=== PATIENT | female | born 1995 | race Caucasian/White ===

== ENCOUNTER 2017-12-25 12:22 | Inpatient (IN) ==
--- NOTE | 2017-12-25 12:33 | Emergency Department Note ---
Disposition Clinical Impression: RLQ abdominal pain, Cecal diverticulitis Disposition: Admitted As Inpatient Condition: Fair General Adult HPI - General Chief complaint: ED Abdominal Pain Stated complaint: abd pain Time Seen by Provider: 12/25/17 12:28 Source: patient Limitations: no limitations - History of Present Illness Pain Scale: 6 - Related Data Home Medications Medication Instructions Recorded Confirmed No Known Home Drugs 12/25/17 12/25/17 Allergies Allergy/AdvReac Type Severity Reaction Status Date / Time No Known Allergies Allergy Verified 12/25/17 12:28 Past Medical History - Past Medical History Medical history: Reports: no medical history Psychiatric history: Reports: no psych history - Social History Smoking Status: Current every day smoker Smokeless Tobacco Status: No Alcohol use: Reports: none Drug use: Reports: none Physical Exam - General Limitations: no limitations General appearance: alert Course Vital Signs Temperature 98.4 F 12/25/17 12:24 Pulse Rate 122 12/25/17 12:24 Respiratory Rate 18 12/25/17 12:24 Blood Pressure 114/78 12/25/17 12:24 O2 Sat by Pulse Oximetry 99 12/25/17 12:24 Temperature 98.1 F 12/26/17 06:30 Pulse Rate 81 12/26/17 06:30 Respiratory Rate 18 12/26/17 06:30 Blood Pressure 101/66 12/26/17 06:30 O2 Sat by Pulse Oximetry 97 12/26/17 06:30 Oxygen Delivery Oxygen Delivery Room Air Medical Decision Making - Lab Data Result diagrams: 12/26/17 05:26 12/26/17 05:26 Lab Results 12/25/17 12/25/17 12/25/17 Range/Units 12:34 12:34 12:44 WBC 11.6 H (4.3-11.1) K/mcL RBC 4.72 (3.82-4.97) M/mcL Hgb 14.0 (11.5-15.4) g/dL Hct 42.4 (35.3-44.9) % MCV 89.8 (83.0-100.0) fL MCH 29.7 (28.0-33.3) pg MCHC 33.0 (31.6-35.5) g/dL RDW 12.4 (11.5-14.5) % Plt Count 284 (140-400) K/mcL MPV 10.5 (9.4-12.4) fL Immature Gran % 0.3 (0-4) % Seg Neutrophils % 82.1 % Lymphocytes % 11.1 % Monocytes % 5.9 % Eosinophils % 0.4 % Basophils % 0.2 % Neutrophils # 9.5 H (1.6-8.9) K/mcL Lymphocytes # 1.3 (0.6-4.6) K/mcL Monocytes # 0.7 (0.0-1.3) K/mcL Eosinophils # 0.1 (0.0-0.6) K/mcL Basophils # 0.0 (0.0-0.2) K/mcL Sodium (136-145) mEq/L Potassium (3.5-5.1) mEq/L Chloride (98-107) mEq/L Carbon Dioxide (23-29) mEq/L BUN (6-20) mg/dL Creatinine (0.60-1.20) mg/dL Est GFR ( Amer) (> 60) Est GFR (Non-Af Amer) (> 60) BUN/Creatinine Ratio (6-26) Glucose (70-105) mg/dL Calculated Osmolality (280-300) Calcium (8.6-10.3) mg/dL Total Bilirubin (0.3-1.0) mg/dL AST (13-39) Units/L ALT (7-52) Units/L Alkaline Phosphatase (34-104) Units/L Serum Total Protein (6.4-8.9) g/dL Albumin (3.5-5.7) g/dL Globulin (2.4-3.5) g/dL Albumin/Globulin Ratio (1.1-2.2) Lipase (11-82) Units/L Urine Color Yellow (Yellow) Urine Clarity Clear (Clear) Urine pH 6.5 (5.0-8.0) pH Units Ur Specific [place] 1.018 (1.010-1.025) Urine Protein Negative (Neg-Trace) mg/dL Urine Glucose (UA) Normal (Normal) mg/dL Urine Ketones Negative (Negative) mg/dL Urine Blood Negative (Negative) Urine Nitrite Negative (Negative) Urine Bilirubin Negative (Negative) Urine Urobilinogen Normal (Normal) mg/dL Ur Leukocyte Esterase Negative (Negative) Urine Test Negative (Negative) 12/25/17 12/25/17 Range/Units 12:44 12:44 WBC (4.3-11.1) K/mcL RBC (3.82-4.97) M/mcL Hgb (11.5-15.4) g/dL Hct (35.3-44.9) % MCV (83.0-100.0) fL MCH (28.0-33.3) pg MCHC (31.6-35.5) g/dL RDW (11.5-14.5) % Plt Count (140-400) K/mcL MPV (9.4-12.4) fL Immature Gran % (0-4) % Seg Neutrophils % % Lymphocytes % % Monocytes % % Eosinophils % % Basophils % % Neutrophils # (1.6-8.9) K/mcL Lymphocytes # (0.6-4.6) K/mcL Monocytes # (0.0-1.3) K/mcL Eosinophils # (0.0-0.6) K/mcL Basophils # (0.0-0.2) K/mcL Sodium 137 (136-145) mEq/L Potassium 3.7 (3.5-5.1) mEq/L Chloride 106 (98-107) mEq/L Carbon Dioxide 24 (23-29) mEq/L BUN 9 (6-20) mg/dL Creatinine 0.70 (0.60-1.20) mg/dL Est GFR ( Amer) > 60 (> 60) Est GFR (Non-Af Amer) > 60 (> 60) BUN/Creatinine Ratio 13 (6-26) Glucose 89 (70-105) mg/dL Calculated Osmolality 282 (280-300) Calcium 9.5 (8.6-10.3) mg/dL Total Bilirubin 0.7 (0.3-1.0) mg/dL AST 11 L (13-39) Units/L ALT 11 (7-52) Units/L Alkaline Phosphatase 72 (34-104) Units/L Serum Total Protein 7.2 (6.4-8.9) g/dL Albumin 4.3 (3.5-5.7) g/dL Globulin 2.9 (2.4-3.5) g/dL Albumin/Globulin Ratio 1.5 (1.1-2.2) Lipase 10 L (11-82) Units/L Urine Color (Yellow) Urine Clarity (Clear) Urine pH (5.0-8.0) pH Units Ur Specific [place] (1.010-1.025) Urine Protein (Neg-Trace) mg/dL Urine Glucose (UA) (Normal) mg/dL Urine Ketones (Negative) mg/dL Urine Blood (Negative) Urine Nitrite (Negative) Urine Bilirubin (Negative) Urine Urobilinogen (Normal) mg/dL Ur Leukocyte Esterase (Negative) Urine Test (Negative) Attestation Statement - Attestation Attestation: I examined this patient and my medical decision-making was reviewed with the Resident Physician. I agree with the documented findings, disposition and treatment plan as described except to the extent set forth below. Face to face time provided in conjunction with the resident physician Dr. Larios Patient presents with right lower quadrant abdominal pain. She displays mild voluntary guarding and tenderness with palpation of her right lower quadrant. She does have mild peritoneal findings. Concern for an acute surgical abdomen including such as acute appendicitis. 13:58: Dr. Franco has evaluated the patient. He recommends repeating a CT of the abdomen and pelvis with oral contrast.
[2017-12-25 12:48] LABS: Bilirubin,Urine Negative (Negative); Blood,Urine Negative (Negative); Clarity,Urine Clear (Clear); Color,Urine Yellow (Yellow); Glucose,Urine (UA) Normal (Normal); Ketones,Urine Negative (Negative); Leukocyte Esterase,Urine Negative (Negative); Nitrite,Urine Negative (Negative); PH,Urine 6.5 pH Units (5.0-8.0); Protein,Urine Negative (Neg-Trace); Specific Gravity,Urine 1.018 (1.010-1.025); Urobilinogen,Urine Normal (Normal)
[2017-12-25 12:52] LABS: Basophils % 0.2 %; Eosinophils # 0.1 K/mcL (0.0-0.6); Eosinophils % 0.4 %; Hematocrit 42.4 % (35.3-44.9); Immature Granulocytes % 0.3 % (0-4); Lymphocytes # 1.3 K/mcL (0.6-4.6); Lymphocytes % 11.1 %; Mean Corpuscular Hemoglobin 29.7 pg (28.0-33.3); Mean Corpuscular Volume 89.8 fL (83.0-100.0); Mean Platelet Volume 10.5 fL (9.4-12.4); Monocytes # 0.7 K/mcL (0.0-1.3); Monocytes % 5.9 %; Neutrophils # 9.5 K/mcL (1.6-8.9); Platelet Count 284 K/mcL (140-400); Red Blood Count 4.72 M/mcL (3.82-4.97); Red Cell Distribution Width 12.4 % (11.5-14.5); Segmented Neutrophils % 82.1 %
[2017-12-25] MEDS ORDERED: 0.9 % Sodium Chloride 1,000 ML IVC ONE ×2 (12:54→13:58)
[2017-12-25] MEDS ORDERED: *HR* FentaNYL (PF) 100 MCG/2 ML VIAL IVP ONE (12:54)
[2017-12-25] MEDS ORDERED: Ondansetron 4 MG/2 ML VIAL IVP PRN ×2 (12:54→16:54)
--- NOTE | 2017-12-25 12:58 | Emergency Department Note ---
Disposition Clinical Impression: RLQ abdominal pain, Cecal diverticulitis Disposition: Admitted As Inpatient Condition: Fair Time of Disposition: 20:25 Abdominal Pain HPI - General Chief Complaint: ED Abdominal Pain Stated Complaint: abd pain Time Seen by Provider: 12/25/17 12:28 Source: patient Nursing Notes Reviewed: Yes Vital Signs Reviewed: Yes - History of Present Illness HPI Narrative: 22-year-old female who complains of abdominal pain 3 days. Patient states that 3 days ago her pain started off just above her umbilicus over the next several days migrated to the right lower quadrant and has increased in intensity. Patient states pain is 7/10 but when exacerbated by movement or touch or sometimes nothing pain is 10/10. Patient states she has nausea with the pain but no vomiting. Patient also denies diarrhea. Patient is otherwise healthy and has no medical history or surgical history. Patient admits to tobacco use. Pain Scale: 6 - Related Data Home Medications Medication Instructions Recorded Confirmed No Known Home Drugs 12/25/17 12/25/17 Allergies Allergy/AdvReac Type Severity Reaction Status Date / Time No Known Allergies Allergy Verified 12/25/17 12:28 All systems ED: reviewed and negative except as stated. Review of Systems: As Per HPI Constitutional: Denies: fever, chills, weakness ENT ED: Denies: congestion Cardiovascular: Denies: chest pain Gastrointestinal: Reports: abdominal pain, nausea. Denies: vomiting Abdominal Pain PMH - Past Medical History Medical history: Reports: no medical history Female Surgical History: Reports: no surgical history Psychiatric history: Reports: no psych history - Social History Smoking status: Current every day smoker Alcohol use: Reports: none Drug use: Reports: none Physical Exam Vital Signs Temperature 98.4 F 12/25/17 12:24 Pulse Rate 122 12/25/17 12:24 Respiratory Rate 18 12/25/17 12:24 Blood Pressure 114/78 12/25/17 12:24 O2 Sat by Pulse Oximetry 99 12/25/17 12:24 Temperature 98.4 F 12/25/17 12:24 Pulse Rate 122 12/25/17 12:24 Respiratory Rate 18 12/25/17 12:24 Blood Pressure 114/78 12/25/17 12:24 O2 Sat by Pulse Oximetry 99 12/25/17 12:24 Oxygen Delivery Oxygen Delivery Room Air CONSTITUTIONAL: Alert and oriented X3, well-nourished, well appearing, in apparent distress from abdominal discomfort. HEAD: Normocephalic; atraumatic. EYES: PERRL, no scleral icterus. NOSE: The nose is normal in appearance without rhinorrhea RESP: Normal chest excursion with respiration; breath sounds clear and equal bilaterally; no wheezes, rhonchi, or rales CARD: Regular rhythm, without murmurs, rub or gallop ABD: Non-distended; flat and tender abdomen to palpation. The patient in right upper, left upper, and left lower quadrants have referred pain to the right lower quadrant at McBurney's point. Positive Rovsing's. Bowel sounds normoactive SKIN: Normal for age and race; warm and dry; no apparent lesions - General Limitations: no limitations General appearance: alert Course - Reevaluation(s) Reevaluation #1: CT results show Mild acute uncomplicated cecal diverticulitis. [facility] surgery has been contacted and Dr. Mejía will come and evaluate the patient. Time: 13:51 Reevaluation #2: Dr. Franco is here to evaluate patient Time: 13:53 Reevaluation #3: Patient was updated on the results of repeat CT scan with IV and oral contrast. As well as decision to admit to Dr. Franco' service. Time: 17:04 - Consultations Consultation #1: Dr. Franco of general surgery evaluated the patient and requested a repeat CT abdomen and pelvis with IV and oral contrast Time: 13:59 Vital Signs Temperature 98.4 F 12/25/17 12:24 Pulse Rate 122 12/25/17 12:24 Respiratory Rate 18 12/25/17 12:24 Blood Pressure 114/78 12/25/17 12:24 O2 Sat by Pulse Oximetry 99 12/25/17 12:24 Temperature 98.1 F 12/26/17 06:30 Pulse Rate 81 12/26/17 06:30 Respiratory Rate 18 12/26/17 06:30 Blood Pressure 101/66 12/26/17 06:30 O2 Sat by Pulse Oximetry 97 12/26/17 06:30 Oxygen Delivery Oxygen Delivery Room Air Abdominal Pain - MDM Narrative Medical decision making narrative: 20-year-old female with right lower quadrant abdominal pain with positive Rovsing's and positive tender to palpation of McBurney's point concerning primarily for appendicitis, but colitis, Crohn's disease, ectopic , tubo-ovarian abscess, ovarian torsion UTI, kidney stones/ureterolithiasis have been considered. Patient's test was negative, patient's pain symptoms are lateralized outside of the pelvis, as no recent history of fevers, vaginal discharge, or dysuria. Labs ordered and showed no abnormalities outside of a mildly elevated WBC at 11.6 most likely secondary to stress demargination from pain. IV normal saline, 50 g fentanyl ordered for pain, Zofran for nausea, CT abdomen and pelvis. CT abd and pelvis: IMPRESSION: 1. Wall thickening of the proximal ascending colon, cecum, and region of the ileocecal valve with fat stranding/inflammation surrounding an outpouching in the cecum. Findings favored to represent cecal diverticulitis. Other differential considerations which are less likely include colitis or neoplasm in the appropriate clinical setting. 2. Tubular structure favored to represent the appendix is normal in caliber. 3. Mild to moderate rectosigmoid and sigmoid diverticulosis. Mild scattered colonic diverticulosis. 4. No evidence for small bowel obstruction. 5. Small amount of free fluid in the pelvis. Bilateral ovarian cysts. Iv normal saline was started. Joan Arenas of Gen. Surgery evaluated and requested a CT abdomen and pelvis with IV and oral contrast. which showed normal appearing appendix but heavily inflamed colon and cecal diverticulitis. On re-evaluation he requested that the patient be admitted to his service for serial abdominal exams to monitor for evolution of symptoms. Pt was started on flagyl and zosyn. Pt is in stable condition and pain has been controlled with fentanyl IV, Nausea with zofran. Pt understands and agrees to treatment and plan. - Lab Data Lab results reviewed: Yes I reviewed the patient's lab results. Lab results narrative: Short CBC 12/25/17 Range/Units 12:44 WBC 11.6 H (4.3-11.1) K/mcL Hgb 14.0 (11.5-15.4) g/dL Hct 42.4 (35.3-44.9) % Plt Count 284 (140-400) K/mcL Neutrophils # 9.5 H (1.6-8.9) K/mcL BMP 12/25/17 Range/Units 12:44 Sodium 137 (136-145) mEq/L Potassium 3.7 (3.5-5.1) mEq/L Chloride 106 (98-107) mEq/L Carbon Dioxide 24 (23-29) mEq/L BUN 9 (6-20) mg/dL Creatinine 0.70 (0.60-1.20) mg/dL Glucose 89 (70-105) mg/dL Calcium 9.5 (8.6-10.3) mg/dL Liver Function 12/25/17 Range/Units 12:44 Total Bilirubin 0.7 (0.3-1.0) mg/dL AST 11 L (13-39) Units/L ALT 11 (7-52) Units/L Alkaline Phosphatase 72 (34-104) Units/L Albumin 4.3 (3.5-5.7) g/dL Urine 12/25/17 Range/Units 12:34 Urine Color Yellow (Yellow) Urine Clarity Clear (Clear) Urine pH 6.5 (5.0-8.0) pH Units Ur Specific [place] 1.018 (1.010-1.025) Urine Protein Negative (Neg-Trace) mg/dL Urine Glucose (UA) Normal (Normal) mg/dL Result diagrams: 12/26/17 05:26 12/26/17 05:26 Lab Results 12/25/17 12/25/17 12/25/17 Range/Units 12:34 12:34 12:44 WBC 11.6 H (4.3-11.1) K/mcL RBC 4.72 (3.82-4.97) M/mcL Hgb 14.0 (11.5-15.4) g/dL Hct 42.4 (35.3-44.9) % MCV 89.8 (83.0-100.0) fL MCH 29.7 (28.0-33.3) pg MCHC 33.0 (31.6-35.5) g/dL RDW 12.4 (11.5-14.5) % Plt Count 284 (140-400) K/mcL MPV 10.5 (9.4-12.4) fL Immature Gran % 0.3 (0-4) % Seg Neutrophils % 82.1 % Lymphocytes % 11.1 % Monocytes % 5.9 % Eosinophils % 0.4 % Basophils % 0.2 % Neutrophils # 9.5 H (1.6-8.9) K/mcL Lymphocytes # 1.3 (0.6-4.6) K/mcL Monocytes # 0.7 (0.0-1.3) K/mcL Eosinophils # 0.1 (0.0-0.6) K/mcL Basophils # 0.0 (0.0-0.2) K/mcL Sodium (136-145) mEq/L Potassium (3.5-5.1) mEq/L Chloride (98-107) mEq/L Carbon Dioxide (23-29) mEq/L BUN (6-20) mg/dL Creatinine (0.60-1.20) mg/dL Est GFR ( Amer) (> 60) Est GFR (Non-Af Amer) (> 60) BUN/Creatinine Ratio (6-26) Glucose (70-105) mg/dL Calculated Osmolality (280-300) Calcium (8.6-10.3) mg/dL Total Bilirubin (0.3-1.0) mg/dL AST (13-39) Units/L ALT (7-52) Units/L Alkaline Phosphatase (34-104) Units/L Serum Total Protein (6.4-8.9) g/dL Albumin (3.5-5.7) g/dL Globulin (2.4-3.5) g/dL Albumin/Globulin Ratio (1.1-2.2) Lipase (11-82) Units/L Urine Color Yellow (Yellow) Urine Clarity Clear (Clear) Urine pH 6.5 (5.0-8.0) pH Units Ur Specific [place] 1.018 (1.010-1.025) Urine Protein Negative (Neg-Trace) mg/dL Urine Glucose (UA) Normal (Normal) mg/dL Urine Ketones Negative (Negative) mg/dL Urine Blood Negative (Negative) Urine Nitrite Negative (Negative) Urine Bilirubin Negative (Negative) Urine Urobilinogen Normal (Normal) mg/dL Ur Leukocyte Esterase Negative (Negative) Urine Test Negative (Negative) 12/25/17 12/25/17 Range/Units 12:44 12:44 WBC (4.3-11.1) K/mcL RBC (3.82-4.97) M/mcL Hgb (11.5-15.4) g/dL Hct (35.3-44.9) % MCV (83.0-100.0) fL MCH (28.0-33.3) pg MCHC (31.6-35.5) g/dL RDW (11.5-14.5) % Plt Count (140-400) K/mcL MPV (9.4-12.4) fL Immature Gran % (0-4) % Seg Neutrophils % % Lymphocytes % % Monocytes % % Eosinophils % % Basophils % % Neutrophils # (1.6-8.9) K/mcL Lymphocytes # (0.6-4.6) K/mcL Monocytes # (0.0-1.3) K/mcL Eosinophils # (0.0-0.6) K/mcL Basophils # (0.0-0.2) K/mcL Sodium 137 (136-145) mEq/L Potassium 3.7 (3.5-5.1) mEq/L Chloride 106 (98-107) mEq/L Carbon Dioxide 24 (23-29) mEq/L BUN 9 (6-20) mg/dL Creatinine 0.70 (0.60-1.20) mg/dL Est GFR ( Amer) > 60 (> 60) Est GFR (Non-Af Amer) > 60 (> 60) BUN/Creatinine Ratio 13 (6-26) Glucose 89 (70-105) mg/dL Calculated Osmolality 282 (280-300) Calcium 9.5 (8.6-10.3) mg/dL Total Bilirubin 0.7 (0.3-1.0) mg/dL AST 11 L (13-39) Units/L ALT 11 (7-52) Units/L Alkaline Phosphatase 72 (34-104) Units/L Serum Total Protein 7.2 (6.4-8.9) g/dL Albumin 4.3 (3.5-5.7) g/dL Globulin 2.9 (2.4-3.5) g/dL Albumin/Globulin Ratio 1.5 (1.1-2.2) Lipase 10 L (11-82) Units/L Urine Color (Yellow) Urine Clarity (Clear) Urine pH (5.0-8.0) pH Units Ur Specific [place] (1.010-1.025) Urine Protein (Neg-Trace) mg/dL Urine Glucose (UA) (Normal) mg/dL Urine Ketones (Negative) mg/dL Urine Blood (Negative) Urine Nitrite (Negative) Urine Bilirubin (Negative) Urine Urobilinogen (Normal) mg/dL Ur Leukocyte Esterase (Negative) Urine Test (Negative) - Radiology Data Radiology results reviewed: Yes I reviewed the patient's radiology results. Abdomen/Pelvis CT 12/25/17 15:00 IMPRESSION: 1. Wall thickening of the proximal ascending colon, cecum, and region of the ileocecal valve with fat stranding/inflammation surrounding an outpouching in the cecum. Findings favored to represent cecal diverticulitis. Other differential considerations which are less likely include colitis or neoplasm in the appropriate clinical setting. 2. Tubular structure favored to represent the appendix is normal in caliber. 3. Mild to moderate rectosigmoid and sigmoid diverticulosis. Mild scattered colonic diverticulosis. 4. No evidence for small bowel obstruction. 5. Small amount of free fluid in the pelvis. Bilateral ovarian cysts. D/ / 12/25/2017 15:24:11 Alton Jean MD / [facility] Interpreting Provider: Alton Jean MD
[2017-12-25 13:09] LABS: Alanine Aminotransferase 11 Units/L (7-52); Albumin 4.3 g/dL (3.5-5.7); Albumin/Globulin Ratio 1.5 (1.1-2.2); Alkaline Phosphatase 72 Units/L (34-104); Aspartate Amino Transferase 11 Units/L (13-39); BUN/Creatinine Ratio 13 (6-26); Bilirubin,Total 0.7 mg/dL (0.3-1.0); Blood Urea Nitrogen 9 mg/dL (6-20); Calcium 9.5 mg/dL (8.6-10.3); Carbon Dioxide 24 mEq/L (23-29); Chloride 106 mEq/L (98-107); Globulin 2.9 g/dL (2.4-3.5); Glucose 89 mg/dL (70-105); Osmolality,Calculated 282 (280-300); Potassium 3.7 mEq/L (3.5-5.1); Sodium 137 mEq/L (136-145); Total Protein 7.2 g/dL (6.4-8.9); eGFR For African Americans > 60 (> 60); eGFR For Non-African Americans > 60 (> 60)
[2017-12-25] MEDS ORDERED: MetroNIDAZOLE 500 MG/100 ML 500 MG/100 ML BAG IVPB ONE (13:31)
--- NOTE | 2017-12-25 17:12 | General Surg History&Physical ---
<KashlamaLisa kendall H - Last Filed: 12/25/17 17:09> Date of Encounter: 12/25/17 Time of Encounter: 15:00 Assessment and Plan (1) Cecal diverticulitis Current Visit: Yes Status: Acute Repeat CT scan of the abdomen and pelvis with IV and oral contrast on 2017 demonstrates wall thickening of the proximal ascending colon, cecum, and region of ileocecal valve. Findings favored to represent cecal diverticulitis. Other differential considerations are less likely include colitis or neoplasm. Appendix appears normal in caliber. Moderate rectosigmoid and sigmoid diverticulosis. No evidence for small bowel obstruction. Small amount of free fluid in the pelvis with bilateral ovarian cysts. -Patient with clinical presentation consistent with acute appendicitis, however , CT scan suggestive of cecal diverticulitis. -We will admit to the hospital for conservative management at this point. -NPO -IV maintenance fluids, antiemetics, and pain management. -IV antibiotics (zosyn). -Will monitor clinically. History of Present Illness Chief complaint: Abdominal pain HPI: Ms. Espana is a 22 year old female with no past medical history and no past surgical history who presented to [facility] on 12/25/2017 with a 3 day history of intermittently worsening abdominal pain. She describes her pain as originating in the epigastric area with eventual migration down to her right lower quadrant. She denies nausea or vomiting. She states she is able to eat normally. She denies any diarrhea, constipation, melena or hematochezia. Per patient, she reports that her abdominal pain felt like gas that she was unable to pass initially. She states the pain comes and goes. Over the past 3 days, she felt her pain was exacerbated during movement especially from standing to sitting position. This morning, however, she stated the pain was so bad that she felt it more constantly regardless of movement. She states her pain was alleviated significantly after receiving pain medication upon arrival to the emergency department. She denies fever, chills, or night sweats. Past Med Surg Social Fam HX - Past Medical History Attestation: Yes The following information was validated with the patient. Source: patient, old records reviewed Medical history: no medical history Psychiatric history: no psych history - Past Surgical History Surgical History: no surgical history - Social History Smoking Status: Current every day smoker Smokeless Tobacco Status: No Alcohol use: none Drug use: none - Family History Mother Living Status: Still Living Hx Family Cardiac Disorders: Yes (defib) Hx Family Respiratory Disorders: Yes (copd) Medications and Allergies No Known Home Drugs 12/25/17 [History] 3 Allergy/AdvReac Type Severity Reaction Status Date / Time No Known Allergies Allergy Verified 12/25/17 12:28 Review of Systems All systems PM: A 10-system review of systems was performed and is negative for pertinent findings except as documented above in the HPI. - Constitutional as per HPI, no fever(s), no night sweats - Cardiovascular no chest pain, no dyspnea, no lightheadedness, no palpitations - Respiratory no cough - Gastrointestinal abdominal pain, cramping, no change in bowel habits, no change in stool character, no constipation, no diarrhea, no hematemesis, no hematochezia, no loose stools, no melena, no vomiting - Genitourinary Genitourinary: no abnormal menses, no abnormal vaginal bleeding, no dysuria, no flank pain General Surgery Exam Initial Vital Signs Temp Pulse Resp BP Pulse Ox 98.4 F 122 18 114/78 99 12/25/17 12:24 12/25/17 12:24 12/25/17 12:24 12/25/17 12:24 12/25/17 12:24 - General physical appearance well developed, well nourished, no distress - Eyes PERRL, normal ocular movement - ENT no congestion - Respiratory normal expansion, normal respiratory effort, clear to percussion, clear to auscultation - Cardiovascular Cardiovascular exam: Present: RRR, no murmurs/rubs/gallops - Abdomen Abdomen general surgery: Present: bowel sounds present, soft, tender (Right lower quadrant tenderness and mild guarding.). Absent: distended, rebound, rigid Hernia: Present: none - Neurologic Present: CN 2-12 grossly intact, normal coordination, normal sensation - Psychiatric Psychiatric general surgery: Present: A&Ox3, speech is normal, memory intact Results - Labs 12/25/17 12:44 12/25/17 12:44 Abnormal lab results WBC 11.6 K/mcL (4.3-11.1) H 12/25/17 12:44 Neutrophils # 9.5 K/mcL (1.6-8.9) H 12/25/17 12:44 AST 11 Units/L (13-39) L 12/25/17 12:44 Lipase 10 Units/L (11-82) L 12/25/17 12:44 All other labs normal. - VTE Reasons for not Prescribing Prophylaxis: Treatment not Indicated - Low risk for VTE <Kevin Franco Lindy - Last Filed: 12/25/17 19:33> Date of Encounter: 12/25/17 History of Present Illness HPI: Ms. Espana is a 22 year old female Review of Systems All systems PM: A 10-system review of systems was performed and is negative for pertinent findings except as documented above in the HPI. General Surgery Exam Initial Vital Signs Temp Pulse Resp BP Pulse Ox 98.4 F 122 18 114/78 99 12/25/17 12:24 12/25/17 12:24 12/25/17 12:24 12/25/17 12:24 12/25/17 12:24 Results - Labs 12/25/17 12:44 12/25/17 12:44 Abnormal lab results WBC 11.6 K/mcL (4.3-11.1) H 12/25/17 12:44 Neutrophils # 9.5 K/mcL (1.6-8.9) H 12/25/17 12:44 AST 11 Units/L (13-39) L 12/25/17 12:44 Lipase 10 Units/L (11-82) L 12/25/17 12:44 All other labs normal. - Attending Attestation Patient seen and examined; I have reviewed all pertinent labs, imaging, and notes, including this one. I agree with the above assessment and plan and wish to add the following... 22F with 3 day history of worsening abdominal pain that started periumbilically but has since migrated to the R side; Does not report PO intolerance; afebrile; finally presented to ER due to severity of the pain; mild leukocytosis, CT demonstrates inflammation of colon, but appendix is normal; concerning for possible R sided diverticulitis; admit for pain control, bowel rest, and iv antibiotics; no acute surgery at this point, unless clinical status dictates as such
[2017-12-25] MEDS: 0.9 % Sodium Chloride 1,000 ML IVC SCH (17:28)
[2017-12-25] MEDS: OXYCODONE Oral CONC 10 MG/0.5 ML ORAL.SYG SL PRN ×2 (17:29→21:31)
[2017-12-25] MEDS: Pantoprazole 40 MG VIAL IVP SCH (17:32)
[2017-12-25] MEDS: *HR* Heparin 5,000 UNIT/ML VIAL SQ SCH (17:33)
[2017-12-25] MEDS: Nicotine 14 MG PATCH.TD24 TD SCH (22:39)
[2017-12-26] MEDS: 0.9 % Sodium Chloride 1,000 ML IVC SCH (02:41)
[2017-12-26] MEDS: OXYCODONE Oral CONC 10 MG/0.5 ML ORAL.SYG SL PRN ×2 (02:51→16:03)
[2017-12-26 06:03] LABS: Basophils % 0.1 %; Eosinophils # 0.1 K/mcL (0.0-0.6); Eosinophils % 1.4 %; Hematocrit 33.5 % (35.3-44.9); Immature Granulocytes % 0.3 % (0-4); Lymphocytes # 2.3 K/mcL (0.6-4.6); Lymphocytes % 31.7 %; Mean Corpuscular HGB Conc 32.2 g/dL (31.6-35.5); Mean Corpuscular Hemoglobin 29.6 pg (28.0-33.3); Mean Corpuscular Volume 91.8 fL (83.0-100.0); Monocytes # 0.4 K/mcL (0.0-1.3); Neutrophils # 4.3 K/mcL (1.6-8.9); Platelet Count 213 K/mcL (140-400); Red Blood Count 3.65 M/mcL (3.82-4.97); Red Cell Distribution Width 12.6 % (11.5-14.5); Segmented Neutrophils % 60.5 %
[2017-12-26 06:05] LABS: Hemoglobin 10.8 g/dL (11.5-15.4)
[2017-12-26] MEDS: *HR* Heparin 5,000 UNIT/ML VIAL SQ SCH ×2 (06:15→21:25)
[2017-12-26 06:21] LABS: BUN/Creatinine Ratio 9 (6-26); Blood Urea Nitrogen 7 mg/dL (6-20); Calcium 8.7 mg/dL (8.6-10.3); Carbon Dioxide 24 mEq/L (23-29); Chloride 111 mEq/L (98-107); Glucose 83 mg/dL (70-105); Osmolality,Calculated 285 (280-300); Potassium 3.7 mEq/L (3.5-5.1); Sodium 139 mEq/L (136-145); eGFR For African Americans > 60 (> 60); eGFR For Non-African Americans > 60 (> 60)
[2017-12-26] MEDS: Ketorolac 30 MG/ML VIAL IVP PRN ×2 (09:27→21:24)
[2017-12-26] MEDS: Pantoprazole 40 MG VIAL IVP SCH (09:27)
[2017-12-26] MEDS ORDERED: 0.9 % Sodium Chloride 1,000 ML IVC SCH (12:51)
--- NOTE | 2017-12-26 12:55 | General Surgery Progress Note ---
Date of Encounter: 12/26/17 Time of Encounter: 12:53 - Assessment and Plan (1) Cecal diverticulitis Current Visit: Yes Status: Acute 22F with cecal diverticulitis; pain is slightly improved; WBC wnl NPO IVF abx activity, diet a tolerated Subjective Patient reports: no new complaints, feels better, still having pain, pain is less, no flatus, no bowel movement, afebrile Objective Vital Signs - Last 8 Hours Temp Pulse Resp BP Pulse Ox 12/26/17 10:56 97.6 F 74 18 100/69 96 12/26/17 06:30 98.1 F 81 18 101/66 97 Intake and Output 12/25/17 12/26/17 12/26/17 23:59 07:59 15:59 Intake Total 0 / 200 1100 / 1100 0 / 0 Output Total 300 / 300 100 / 100 0 / 0 Balance -300 / -100 1000 / 1000 0 / 0 Intake: IV Fluids 1100 / 1100 0.9 % Sodium Chloride 1,000 ML 1000 / 1000 @ 125 mls/hr IVC .Q8H DAO Rx#: [id number] Zosyn 3.375 GM In 0.9 % Sodium 100 / 100 Chloride 100 ML @ 25 mls/hr IVPB Q8H DAO Rx#:[id number] Oral 0 / 0 0 / 0 0 / 0 Output: Urine 300 / 300 100 / 100 0 / 0 Other: Meal NPO Weight 70.29 kg Blood Glucose* 85 88 88 Patient Weight 12/26/17 23:59 Weight 70.29 kg - General physical appearance no distress - Respiratory normal expansion, normal respiratory effort - Cardiovascular Cardiovascular exam: Present: RRR - Abdomen Abdomen: Present: soft, tender Abdominal Tenderness: RLQ (RLQ and R side) - Integumentary no rash - Neurologic CN 2-12 grossly intact - Psychiatric oriented to time, oriented to person, oriented to place - Labs 12/26/17 05:26 12/26/17 05:26 Diabetes panel 12/26/17 Range/Units 05:26 Sodium 139 (136-145) mEq/L Potassium 3.7 (3.5-5.1) mEq/L Chloride 111 H (98-107) mEq/L Carbon Dioxide 24 (23-29) mEq/L BUN 7 (6-20) mg/dL Creatinine 0.81 (0.60-1.20) mg/dL Glucose 83 (70-105) mg/dL Calcium 8.7 (8.6-10.3) mg/dL Calcium panel 12/26/17 Range/Units 05:26 Calcium 8.7 (8.6-10.3) mg/dL Pituitary panel 12/26/17 Range/Units 05:26 Sodium 139 (136-145) mEq/L Potassium 3.7 (3.5-5.1) mEq/L Chloride 111 H (98-107) mEq/L Carbon Dioxide 24 (23-29) mEq/L BUN 7 (6-20) mg/dL Creatinine 0.81 (0.60-1.20) mg/dL Glucose 83 (70-105) mg/dL Calcium 8.7 (8.6-10.3) mg/dL Adrenal panel 12/26/17 Range/Units 05:26 Sodium 139 (136-145) mEq/L Potassium 3.7 (3.5-5.1) mEq/L Chloride 111 H (98-107) mEq/L Carbon Dioxide 24 (23-29) mEq/L BUN 7 (6-20) mg/dL Creatinine 0.81 (0.60-1.20) mg/dL Glucose 83 (70-105) mg/dL Calcium 8.7 (8.6-10.3) mg/dL - VTE Reasons for not Prescribing Prophylaxis: Treatment not Indicated - Low risk for VTE Consult Discharge Plan - Plan Referrals: NONE,PCP [Primary Care Provider] -
[2017-12-26] MEDS: Nicotine 14 MG PATCH.TD24 TD SCH (14:35)
[2017-12-26] MEDS: D5% in 0.45% NACL 1,000 ML IVC SCH (17:51)
[2017-12-27] MEDS: OXYCODONE Oral CONC 10 MG/0.5 ML ORAL.SYG SL PRN (03:10)
[2017-12-27] MEDS: *HR* Heparin 5,000 UNIT/ML VIAL SQ SCH (06:00)
[2017-12-27] MEDS: D5% in 0.45% NACL 1,000 ML IVC SCH (06:00)
[2017-12-27] MEDS: Ketorolac 30 MG/ML VIAL IVP PRN (06:01)
[2017-12-27 06:59] LABS: Basophils % 0.2 %; Eosinophils # 0.1 K/mcL (0.0-0.6); Eosinophils % 1.6 %; Hematocrit 33.2 % (35.3-44.9); Hemoglobin 10.8 g/dL (11.5-15.4); Immature Granulocytes % 0.2 % (0-4); Lymphocytes # 2.1 K/mcL (0.6-4.6); Lymphocytes % 40.7 %; Mean Corpuscular HGB Conc 32.5 g/dL (31.6-35.5); Mean Corpuscular Hemoglobin 29.7 pg (28.0-33.3); Mean Corpuscular Volume 91.2 fL (83.0-100.0); Mean Platelet Volume 11.4 fL (9.4-12.4); Monocytes # 0.4 K/mcL (0.0-1.3); Monocytes % 7.1 %; Neutrophils # 2.5 K/mcL (1.6-8.9); Platelet Count 203 K/mcL (140-400); Red Blood Count 3.64 M/mcL (3.82-4.97); Red Cell Distribution Width 12.4 % (11.5-14.5); Segmented Neutrophils % 50.2 %
[2017-12-27 07:16] LABS: BUN/Creatinine Ratio 7 (6-26); Blood Urea Nitrogen 5 mg/dL (6-20); Calcium 8.7 mg/dL (8.6-10.3); Carbon Dioxide 24 mEq/L (23-29); Chloride 109 mEq/L (98-107); Glucose 88 mg/dL (70-105); Osmolality,Calculated 283 (280-300); Potassium 3.5 mEq/L (3.5-5.1); Sodium 138 mEq/L (136-145); eGFR For African Americans > 60 (> 60); eGFR For Non-African Americans > 60 (> 60)
[2017-12-27] MEDS ORDERED: metroNIDAZOLE 500 MG TABLET PO SCH (09:00)
[2017-12-27] MEDS ORDERED: levoFLOXacin 750 MG TABLET PO SCH (09:00)
--- NOTE | 2017-12-27 09:25 | Discharge Summary ---
<Lisa Shaikh - Last Filed: 12/27/17 09:48> Date of Encounter: 12/27/17 Time of Encounter: 09:23 - Discharge Diagnosis (1) Cecal diverticulitis Priority: Primary Status: Acute - Discharge Medications Prescriptions: Ciprofloxacin [Cipro] 500 mg PO BID 8 Days #16 tablet metroNIDAZOLE [Flagyl] 500 mg PO TID #24 tablet Home Medications: Ciprofloxacin [Cipro] 500 mg PO BID 8 Days #16 tablet 12/27/17 [Rx] metroNIDAZOLE [Flagyl] 500 mg PO TID #24 tablet 12/27/17 [Rx] Allergies/Adverse Reactions: 3 Allergy/AdvReac Type Severity Reaction Status Date / Time No Known Allergies Allergy Verified 12/25/17 12:28 General Surgery Exam Initial Vital Signs Temp Pulse Resp BP Pulse Ox 98.4 F 122 18 114/78 99 12/25/17 12:24 12/25/17 12:24 12/25/17 12:24 12/25/17 12:24 12/25/17 12:24 - General physical appearance well developed, well nourished, no distress, no pain - ENT no congestion, atraumatic, normocephalic - Respiratory normal expansion, normal respiratory effort, clear to percussion, clear to auscultation - Cardiovascular Cardiovascular exam: Present: RRR, no murmurs/rubs/gallops - Abdomen Abdomen general surgery: Present: bowel sounds present, soft. Absent: distended , guarding, rebound, rigid Hernia: Present: none - Neurologic Present: CN 2-12 grossly intact, normal coordination, normal sensation - Psychiatric Psychiatric general surgery: Present: A&Ox3 Date of admission: 12/25/17 16:54 Primary care physician: PCP NONE Discharging clinician: Kevin Franco Anticipated date of discharge: 12/27/17 - Patient Status Disposition: Home, Self-Care Condition: Good Functional capacity at discharge: independent ambulation Overall status at discharge: patient is progressing back to baseline - Discharge Instructions Instructions: Diverticulitis (DC), Diverticulosis (DC), Diverticulitis Diet ( GEN), Diverticulosis Diet (GEN) Follow Up With: Kevin Franco MD [Non-Partnered Physician] - 01/19/18 3:35 pm Additional Instructions: Please follow-up at your already scheduled appointment with Dr. Franco on January 19 at 3:30 PM. If your abdominal pain returns, worsens, or you develop nausea or vomiting, fevers, or chills, please call your primary care provider or return to the emergency department immediately. - Diet and Activity Activity: increase activity as tolerated Diet: advance to your usual diet - Hospital Course Hospital course: Ms. Espana is a 22 year old female with no past medical or surgical history who presented to [facility] on 12/27/2017 with complaints of right lower quadrant abdominal pain. Upon workup in the emergency department including CT of the abdomen and pelvis, patient was found to have cecal diverticulitis. Her appendix was not inflamed. We admitted the patient to the hospital for IV antibiotics, bowel rest, and IV fluids. Patient responded favorably and was transitioned to oral antibiotics yesterday. This morning, her abdominal pain was resolved and her white blood cell count was within normal limits. Patient is being discharged home with 8 days of ciprofloxacin and metronidazole to total 10 days of antibiotic coverage. Patient was given instructions on diverticulosis including diverticular diet and preventing future flareups of diverticulitis. Patient has follow-up scheduled with Dr. Franco on January 19 at 3:30 PM. All questions and concerns were addressed with the patient. Patient stated she felt comfortable with plan for discharge today after tolerating advancement of her diet. - Time Spent with Patient Total time spent providing and/or coordinating discharge services: Less than 30 minutes Labs on day of discharge: Labs from last 24 hours 12/27/17 12/27/17 12/27/17 05:53 05:53 00:18 WBC 5.0 RBC 3.64 L Hgb 10.8 L Hct 33.2 L MCV 91.2 MCH 29.7 MCHC 32.5 RDW 12.4 Plt Count 203 MPV 11.4 Immature Gran % 0.2 Seg Neutrophils % 50.2 Lymphocytes % 40.7 Monocytes % 7.1 Eosinophils % 1.6 Basophils % 0.2 Neutrophils # 2.5 Lymphocytes # 2.1 Monocytes # 0.4 Eosinophils # 0.1 Basophils # 0.0 Sodium 138 Potassium 3.5 Chloride 109 H Carbon Dioxide 24 BUN 5 L Creatinine 0.69 Est GFR ( Amer) > 60 Est GFR (Non-Af Amer) > 60 BUN/Creatinine Ratio 7 Glucose 88 POC Glucose 96 H Calculated Osmolality 283 Calcium 8.7 <Merriam,Kevin J - Last Filed: 12/28/17 11:04> Date of Encounter: 12/28/17 - Discharge Diagnosis (1) Cecal diverticulitis Status: Acute General Surgery Exam Initial Vital Signs Temp Pulse Resp BP Pulse Ox 98.4 F 122 18 114/78 99 12/25/17 12:24 12/25/17 12:24 12/25/17 12:24 12/25/17 12:24 12/25/17 12:24 Date of admission: 12/25/17 16:54 Primary care physician: PCP NONE - Hospital Course Hospital course: Ms. Espana is a 22 year old female - Time Spent with Patient Total time spent providing and/or coordinating discharge services: Labs on day of discharge: Labs from last 24 hours 12/26/17 12/26/17 12/26/17 17:11 10:53 06:58 POC Glucose 62 88 87 12/25/17 23:41 POC Glucose 85 - Attending Attestation patient seen and examined; i have reviewed all pertinent imaging, labs, and notes including this one. i agree with the above assessment and plan and wish to add the following... 22F with R sided diverticulitis; pain resolved; tolerating diet; plan for discharge with follow up in my clinic in 2 weeks; she will need a colonoscopy 4 weeks after
[2017-12-27] MEDS: Pantoprazole 40 MG VIAL IVP SCH (10:16)
[2017-12-27] MEDS: Nicotine 14 MG PATCH.TD24 TD SCH (10:22)
[2017-12-27 10:51] VITALS: BP 108/68
== END 2017-12-27 14:25 | disposition home or self-care (01) | DRG 244 ==
LOC: 3ANU 12:22 → EMEROO 12:22 → 3ANU 18:04
PROVIDERS: ADMIT Surgery; ATTEND Surgery